=== PATIENT | male | born 1985 | race Caucasian/White ===

== ENCOUNTER 2017-04-20 10:44 | Emergency (ER) | payer MEDICAID ==
[2017-04-20 11:10] VITALS: BP 140/89
[2017-04-20] MEDS ORDERED: Sodium Chloride 0.9% 10 ML Syringe FLUSH PRN (11:10)
--- NOTE | 2017-04-20 11:28 | EDM.PDOC ---
ED HPI GENERAL MEDICAL PROBLEM - General Chief Complaint: Neuro Symptoms/Deficits Stated Complaint: ARM WEAKNESS AND Time Seen by Provider: 04/20/17 11:01 Source of Information: Reports: Patient, Family History Limitations: Reports: Physical Impairment - History of Present Illness INITIAL COMMENTS - FREE TEXT/NARRATIVE: 31 years old w m with a h/o CVA, Brain CA, S/P RAD and chemo tx, was brought to the ed by his mom due to acute onset of "numbness" at his r arm. Pt was speaking in nl sentences. The symptoms where improving as the pt arrived in the ed. Primary survey showed: nystagmus left lateral ("old") deviation of tongue to left ("old"as per mom) minor weakness left lower extr. ("old" as per mom) Pt was holding his upper extremity up for 5 sec, no pronator drift! CT head w/o contrast was ordered STAT. BP was 135/87 pu.s NSR 84 BPM Onset: Today, Sudden Onset Date: 04/20/17 Onset Time: 10:35 Duration: Minutes:, Constant - Related Data Allergies Allergy/AdvReac Type Severity Reaction Status Date / Time Penicillins Allergy Hives Verified 04/20/17 10:49 blood products Allergy Shortness Uncoded 04/20/17 10:49 of Breath Home Meds: Home Meds Aspirin [Ecotrin] 325 mg PO DAILY 04/20/17 [History] Cholecalciferol (Vitamin D3) [Vitamin D3] 1,000 units PO DAILY 04/20/17 [History ] FLUoxetine [PROzac] 80 mg PO DAILY 04/20/17 [History] Levothyroxine [Synthroid] 88 mcg PO ACBREAKFAST 04/20/17 [History] Omeprazole Magnesium [Prilosec] 20 mg PO DAILY 04/20/17 [History] Pravastatin [Pravachol] 10 mg PO DAILY 04/20/17 [History] carBAMazepine [Tegretol] 200 mg PO BID 04/20/17 [History] traZODone 75 mg PO BEDTIME 04/20/17 [History] Past Medical History HEENT History: Reports: Hard of Hearing, Impaired Vision, Other (See Below) Other HEENT History: L) ear deafness Neurological History: Reports: CVA, Other (See Below) Other Neuro History: stroke in sep Psychiatric History: Reports: Anxiety, Depression Hematologic History: Reports: Blood Transfusion(s) Oncologic (Cancer) History: Reports: Brain, Other (See Below) 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 Social & Family History - Tobacco Use Smoking Status *Q: Never Smoker - Caffeine Use Caffeine Use: Reports: Soda - Recreational Drug Use Recreational Drug Use: No ED ROS GENERAL - Review of Systems Review Of Systems: See Below Constitutional: Reports: No Symptoms HEENT: Reports: No Symptoms Respiratory: Reports: No Symptoms Cardiovascular: Reports: No Symptoms Endocrine: Reports: No Symptoms GI/Abdominal: Reports: No Symptoms : Reports: No Symptoms Musculoskeletal: Reports: No Symptoms Skin: Reports: No Symptoms Neurological: Reports: Numbness (right arm) Psychiatric: Reports: No Symptoms Hematologic/Lymphatic: Reports: No Symptoms Immunologic: Reports: No Symptoms ED EXAM, NEURO - Physical Exam Exam: See Below Exam Limited By: Physical Impairment General Appearance: Alert, WD/WN, No Apparent Distress Eye Exam: Bilateral Eye: Normal Inspection Ears: Normal External Exam Nose: Normal Inspection Throat/Mouth: Normal Inspection Head Exam: Atraumatic, Normocephalic Neck: Normal Inspection, Supple, Non-Tender Respiratory/Chest: No Respiratory Distress, Lungs Clear, Normal Breath Sounds Cardiovascular: Normal Peripheral Pulses, Regular Rate, Rhythm, No Edema GI/Abdominal: Normal Bowel Sounds, Soft, Non-Tender, No Organomegaly (Male) Exam: Deferred Rectal (Males) Exam: Deferred Neurological: Alert, Normal Mood/Affect, Normal Dorsiflexion, CN II-XII Intact, Other (numbness r upper arm) Back Exam: Normal Inspection, Full Range of Motion Extremities: Normal Inspection, Normal Range of Motion Psychiatric: Normal Affect, Normal Mood Skin Exam: Warm, Dry, Intact, Normal Color, No Rash EKG INTERPRETATION EKG Date: 04/20/17 Time: 11:15 Rhythm: NSR Rate (Beats/Min): 86 [place]: Normal P-Wave: Present QRS: Normal ST-T: Normal QT: Normal Comparison: NA - No Prior EKG Course - Vital Signs Text/Narrative:: 31 years old w m with a h/o CVA, Brain CA, S/P RAD and chemo tx, was brought to the ed by his mom due to acute onset of "numbness" at his r arm. Pt was speaking in nl sentences. The symptoms where improving as the pt arrived in the ed. Primary survey showed: nystagmus left lateral ("old") deviation of tongue to left ("old"as per mom) minor weakness left lower extr. ("old" as per mom) Pt was holding his upper extremity up for 5 sec, no pronator drift! CT head w/o contrast was ordered STAT. BP was 135/87 pu.s NSR 84 BPM PE: R arm numbness is subsiding Imaging: CT head: increased attenuation left globus pallidus, no old CTs for comparison Labs: WBC Nl, BUN/Ce ratio 33.1 Consultation 11.30 am: Dr. Lala, Neurologist: Compared ald and new CT Head : No change from prev Imaging studies. Recommends MRI of brain, not available. She recommended to hold all meds at this time. Consultation: Dr. Kc, Hospitalist: Accepted the pt for admission to [facility]. Impression: H/O Sz, H/O CVA. Now: CVA vs TIA, dehydration. Tx: None Plan: transfer to [facility] Last Recorded V/S: Last Vital Signs Temp 37.1 C 04/20/17 11:01 Pulse 87 04/20/17 11:01 Resp 18 04/20/17 11:01 BP 140/89 04/20/17 11:01 Pulse Ox 98 04/20/17 11:01 - Orders/Labs/Meds Orders: Active Orders 24 hr Category Date Time Status EKG Documentation Completion [RC] ASDIRECTED Care 04/20/17 11:10 Active Head wo Cont [CT] Stat Exams 04/20/17 11:03 Ordered Saline Lock Insert [OM.PC] Routine Oth 04/20/17 11:10 Ordered EKG 12 Lead [EK] Routine Ther 04/20/17 11:10 Ordered Labs: Laboratory Tests 04/20/17 04/20/17 04/20/17 Range/Units 11:15 11:15 11:15 WBC 5.3 (4.5-12.0) X10-3/uL RBC 4.22 L (4.30-5.75) x10(6)uL Hgb 12.7 (11.5-15.5) g/dL Hct 37.4 (30.0-51.3) % MCV 88.6 (80-96) fL MCH 30.2 (27.7-33.6) pg MCHC 34.0 (32.2-35.4) g/dL RDW 13.0 (11.5-15.5) % Plt Count 256 (125-369) X10(3)uL MPV 6.6 L (7.4-10.4) fL Neut % (Auto) 55.6 (46-82) % Lymph % (Auto) 37.3 H (13-37) % [place] % (Auto) 6.7 (4-12) % Eos % (Auto) 0 L (1.0-5.0) % Baso % (Auto) 0 (0-2) % Neut # (Auto) 2.9 (1.6-8.3) # Lymph # (Auto) 2.0 (0.6-5.0) # [place] # (Auto) 0.4 (0.0-1.3) # Eos # (Auto) 0.0 (0.0-0.8) # Baso # (Auto) 0.0 (0.0-0.2) # PT 10.0 (8.7-11.1) INR 0.99 (0.89-1.13) Sodium 137 (135-145) mmol/L Potassium 4.0 (3.5-5.3) mmol/L Chloride 102 (100-110) mmol/L Carbon Dioxide 29 (23-29) mmol/L BUN 21 H (5-20) mg/dL Creatinine 0.9 (0.6-1.3) mg/dL Est Cr Clr Drug Dosing 123.92 mL/min Estimated GFR (MDRD) > 60 (>60) BUN/Creatinine Ratio 23.3 H (9-20) Glucose 126 H (80-116) mg/dL Calcium 9.4 (8.6-10.2) mg/dL C-Reactive Protein < 0.5 (0.0-1.0) mg/dL Meds: Medications Discontinued Medications Generic Name Dose Route Start Last Admin Trade Name Freq PRN Reason Stop Dose Admin Sodium Chloride 10 ml 04/20/17 11:10 Saline Flush FLUSH ASDIRECTED PRN Keep Vein Open Departure - Departure Time of Disposition: 11:48 Disposition: DC/Tfer to [facility] Condition: Fair Clinical Impression: CVA (cerebral vascular accident) Qualifiers: CVA mechanism: other Qualified Code(s): I63.8 - Other cerebral infarction - Discharge Information Referrals: Lisa Shaw NP [Primary Care Provider] - Forms: ED Department Discharge - My Orders Last 24 Hours: My Active Orders 04/20/17 11:03 Head wo Cont [CT] Stat 04/20/17 11:10 EKG Documentation Completion [RC] ASDIRECTED Saline Lock Insert [OM.PC] Routine EKG 12 Lead [EK] Routine - Assessment/Plan Last 24 Hours: My Active Orders 04/20/17 11:03 Head wo Cont [CT] Stat 04/20/17 11:10 EKG Documentation Completion [RC] ASDIRECTED Saline Lock Insert [OM.PC] Routine EKG 12 Lead [EK] Routine
== END 2017-04-20 12:12 | disposition critical access hospital (66) ==
LOC: FB.ED 10:44
DX: I63.8 Other cerebral infarction (principal); H54.7 Unspecified visual loss; F41.9 Anxiety disorder, unspecified; F32.9 Major depressive disorder, single episode, unspecified; Z88.0 Allergy status to penicillin; Z91.09 Other allergy status, other than to drugs and biological substances; Z79.82 Long term (current) use of aspirin; Z79.899 Other long term (current) drug therapy
CPT/HCPCS: 36415; 70450; 80048; 85025; 85610; 86140; 93005; 99285